=== PATIENT | female | born 1965 | race Caucasian/White ===

== ENCOUNTER → 2016-10-11 | Outpatient (CLI) | payer OTHER ==
[~2016-10-11] VITALS: Ht 162.6 cm; Wt 62.1 kg
[~2016-10-11] MED LIST: ATARAX,VISTARIL25 MG PO; CALCIUM 500 MG1 EACH PO; DAILY VALUE1 EACH PO; JUNEL FE 1/21 TABLET PO; JUNEL1 EAC1 PO; NORCO 5/3251 TABLET PO; TYLENOL EXTRA500 MG PO; VITAMIN D-32000 UNI2 PO; VITAMIN D2000 UNIT PO; VITAMIN E400 UNIT PO; ZYRTEC10 M2 PO
== END | disposition home or self-care (01) ==
LOC: AMB 08:30
PROC: 0DJD8ZZ Inspection of Lower Intestinal Tract, Via Natural or Artificial Opening Endoscopic (ICD-10-PCS; principal; 2016-10-11)
DX: Z12.11 Encounter for screening for malignant neoplasm of colon (principal)